=== PATIENT | female | born 1985 | race Two or more races ===

== ENCOUNTER 2022-11-27 23:02 | Emergency (ER) | payer OTHER ==
[~2022-11-27] VITALS: Ht 175.3 cm; Wt 61.2 kg
--- NOTE | 2022-11-27 23:18 | NUR ---
BIBRA 878 FOR C/O BILATERAL FOOT PAIN. PT A/OX4. TOLERATING R/A WELL WITH NO RESP DISTRESS. SAFETY MEASURES IN PLACE .
[2022-11-28 00:01] LABS: BASOPHILS # (AUTO) 0.1 K/uL (0.0-0.2); HEMATOCRIT 42 % (33-45); HEMOGLOBIN 13.6 g/dL (11.5-14.8); LYMPHOCYTES # (AUTO) 1.6 K/uL (0.8-4.8); MEAN CORPUSCULAR HGB CONC 32 g/dl (31.0-36.0); MEAN CORPUSCULAR VOLUME 99 fL (82-100); MONOCYTES # (AUTO) 0.6 K/uL (0.1-1.30); MONOCYTES % (AUTO) 18.1 % (2.0-12.0); NEUTROPHILS % (AUTO) 29.9 % (43.0-81.0); PLATELET COUNT (AUTO) 140 K/uL (150-450); RED BLOOD CELL COUNT(AUTO) 4.21 MIL/uL (4.0-5.2); WHITE BLOOD COUNT (AUTO) 3.4 K/uL (4.3-11.0)
[2022-11-28 00:09] LABS: CREATININE 0.6 mg/dL (0.6-1.3); POTASSIUM 3.6 mmol/L (3.5-5.1)
[2022-11-28 00:14] LABS: ALBUMIN 3.9 g/dL (3.4-5.0); BILIRUBIN,TOTAL 0.7 mg/dL (0.2-1.0)
[2022-11-28] MEDS ORDERED: VANCOMYCIN 1 GM /D5W 250 ML PB IV ONE (00:45)
--- NOTE | 2022-11-28 00:56 | NUR ---
COVID ANTIGEN SWAB COLLECTED AND SENT TO LAB
--- NOTE | 2022-11-28 00:56 | NUR ---
IV RAC #18G S/L BLOOD COLLECTED AND SENT TO LAB
[2022-11-28] MEDS ORDERED: VANCOMYCIN 1 GM in IV D5W 250 ML IV ONE (01:00)
--- NOTE | 2022-11-28 01:09 | NUR ---
CLINICAL REPORT GIVEN TO JESSICA PADILLA CM Addendum: 11/28/22 at 0126 by COLE CLINICAL REPORT GIVEN TO JESSICA PADILLA CM
--- NOTE | 2022-11-28 01:28 | NUR ---
AWAITING COVID RESULT TO FAX TO AWAIS PADILLA CM [phone]
--- NOTE | 2022-11-28 01:59 | NUR ---
COVID RESULT TO FAXED TO AWAIS PADILLA CM [phone]
--- NOTE | 2022-11-28 02:06 | NUR ---
FAXED STABLE FOR TRANSFER DOCTORS NOTE TO [facility] ([phone])
[2022-11-28 02:50] LABS: BASOPHILS % (MANUAL) 0 % (0.0-2.0); EOSINOPHILS % (MANUAL) 6 % (0-4); LYMPHOCYTES % (MANUAL) 44 % (16-48); MONOCYTES % (MANUAL) 16 % (0-11.0); NEUTROPHILS % (MANUAL) 34 (42-76)
--- NOTE | 2022-11-28 03:16 | NUR ---
PER JESSCIA AWAITING FOR DR PICKERING TO ACCEPT PT
--- NOTE | 2022-11-28 04:06 | NUR ---
PT ACCEPTED TO [facility] ROOM 303A CALL FOR REPORT [phone] AWAITING FOR REGAL CM TO INFORM OKAY TO GIVE REPORT TRANSPORTATION TO BE SET UP AFTER 0600.
--- NOTE | 2022-11-28 04:09 | NUR ---
CALLED [facility] FOR TRANSPORTATION ETA 7-8AM
--- NOTE | 2022-11-28 04:17 | NUR ---
TRANSPORTATION AUTHORIZATION [id number] AWAITING PHYSICIAN ACCEPTANCE
--- NOTE | 2022-11-28 05:24 | NUR ---
pt is accepted by dr Casey at [facility]
--- NOTE | 2022-11-28 05:30 | NUR ---
REPORT GIVEN TO STEPHY LOBO FROM [facility]
--- NOTE | 2022-11-28 07:10 | NUR ---
RECEIVED PT FROM SPENS[facility] LOB[facility] PT ASLEEPY NO SOB OR DISTRESS
--- NOTE | 2022-11-28 08:00 | NUR ---
PT [facility]INA RIVAS [facility]
[2022-11-28 08:25] VITALS: BP 115/79
--- NOTE | 2022-11-28 08:45 | NUR ---
TRANSFER TO [facility] VIA BLS AMBLANCE PT AWAKE AND ALERT ABLE TO AMBLATE WALKING WITH STADY GAITE
== END 2022-11-28 08:57 | disposition short-term general hospital (02) ==
LOC: ER 23:04
DX: L03.116 Cellulitis of left lower limb (principal); L03.115 Cellulitis of right lower limb; F17.200 Nicotine dependence, unspecified, uncomplicated; Z20.822 Contact with and (suspected) exposure to COVID-19
CPT/HCPCS: 99285; 85025; 87040; 36415; 80053; 96365; 87426; 85007; J3370 ×2; A4223; C9803; J7060